=== PATIENT | female | born 1940 | race Caucasian/White ===

== ENCOUNTER 2017-04-01 05:45 | Inpatient (IN) | payer MEDICARE, OTHER ==
[~2017-04-01] VITALS: Ht 170.2 cm; Wt 77.2 kg
[~2017-04-01 05:45] MED LIST: ACET-1574 PO; ACET325T9 PO; ACET500T68 PO; ALBU2.5V14 NEB; ALPR0.5T PO; ATOR20TA PO; BUSP10TA PO; BUSP15TA PO; BUSP5TAB PO; CALC-98 PO; CHOL10003 PO; CHOL20002 PO; CHOL500016 PO; CYAN500T17 PO; CYCL-331 PO; CYCL5TAB PO; DIVA125C PO; DONE10TA7 PO; DONE5TAB56 PO; GABA-586 PO; GUAI-108 PO; GUAI-40 PO; HALO2TAB PO; HYDR-971 PO; LEVE500T6 PO; LISI10TA2 PO; LISI2.5T PO; LOPE2TAB27 PO; LORA-434 PO; MAG30ORA2 PO; MAG355OR12 PO; MAGN2400 PO; MAGN400O7 PO; MECL25TA3 PO; MEMA10TA PO; MEMA5TAB PO; MEMA7CAP PO; METH29OI TP; MIRT15TA PO; MIRT15TA3 PO; MULT-208 PO; NYST15PO9 TP; OLAN2.5T3 PO; OLAN5TAB5 PO; OMEP20TA8 PO; ONDA4TAB7 PO; QUET25TA5 PO; QUET50TA5 PO; RISP1TAB43 PO; SERT100T PO; SERT50TA PO; SORB1SOL PO; TRAM50TA PO; TRAZ-90 PO; TRAZ50TA15 PO; [UNRECOGNIZED DRUG - CODE] PO
[2017-04-01 06:12] LABS: BASO % 0 % (0-3); EOS % 0 % (0-3); HEMATOCRIT 39.5 % (36.0-47.0); HEMOGLOBIN 13.1 g/dL (12.0-15.5); LYMPH # 2.5 x10^3/uL (1.0-4.8); LYMPH % 22 % (24-48); MEAN CORPUSCULAR HEMOGLOBIN 33 pg (25-35); MEAN CORPUSCULAR HGB CONC 33 g/dL (31-37); MEAN CORPUSCULAR VOLUME 99 fL (79-100); MONO # 1.6 x10^3/uL (0.0-1.1); MONO % 14 % (0-9); NEUT # 7.2 x10^3uL (1.8-7.7); NEUT % 63 % (31-73); PLATELET COUNT 219 x10^3/uL (140-400); RED BLOOD COUNT 3.99 x10^6/uL (3.50-5.40); RED CELL DISTRIBUTION WIDTH 13.1 % (11.5-14.5); WHITE BLOOD COUNT 11.4 x10^3/uL (4.0-11.0)
[2017-04-01 06:20] LABS: BILIRUBIN,URINE NEG (NEG); CLARITY,URINE HAZY; COLOR,URINE YELLOW; GLUCOSE,URINE NEG (NEG); NITRITE,URINE POS (NEG); UROBILINOGEN,URINE 8 mg/dL (0.2 mg/dL)
[2017-04-01 06:21] LABS: BACTERIA,URINE MOD /HPF (0-FEW); RBC,URINE 0 /HPF (0-2); SQUAMOUS EPITHELIAL CELL,UR FEW /LPF
[2017-04-01] MEDS ORDERED: IV NORMAL SALINE 1,000ML 1,000 ML IV SCH (06:30)
[2017-04-01 06:33] LABS: ALBUMIN 2.3 g/dL (3.4-5.0); ALBUMIN/GLOBULIN RATIO 0.5 (1.0-1.7); CALCIUM 9.1 mg/dL (8.5-10.1); CREATININE 1.4 mg/dL (0.6-1.0); GFR 36.6; POTASSIUM 3.6 mmol/L (3.5-5.1); TOTAL BILIRUBIN 0.6 mg/dL (0.2-1.0); TOTAL PROTEIN 7.4 g/dL (6.4-8.2)
[2017-04-01] MEDS ORDERED: IPRATRPIUM/ALBUTEROL 0.5/2.5MG 3 ML NEBU. NEB ONE (07:00)
[2017-04-01 07:09] LABS: VAL ACID 43 mcg/mL (50-100)
[2017-04-01] MEDS ORDERED: methylPREDNISolone SOD SUCC PF 125 MG/2 ML VIAL. IV ONE (07:10)
--- NOTE | 2017-04-01 07:14 | RAD ---
Portable chest, 04/01/2017: History: Hypoxia, altered mental status Comparison is made to a study from 06/21/2015. The heart size and pulmonary vascularity are normal. There is tortuosity of the thoracic aorta. No pulmonary infiltrates are seen. There is no evidence of pleural fluid. IMPRESSION: 1. Aortic ectasia. 2. No acute cardiopulmonary abnormality is detected.
--- NOTE | 2017-04-01 07:20 | PHYS DOC ---
General Chief Complaint: FEVER Stated Complaint: FEVER Time Seen by MD: 06:19 Source: patient, other ([place] RN, home and school visitor) Exam Limitations: clinical condition Problems: History of Present Illness Initial Comments Patient is a 76-year-old female with baseline dementia currently on hospice for "decline" brought to the ED for fever and mental status change. I spoke with the patient's senior living nurse Deandra at 0635 verbally reported to me that the patient has a baseline of alert and oriented 1. This morning her nurse reports that the patient would not open her eyes, she was mumbling, and found to be febrile temperature 102.3 with a heart rate of 100 bpm oxygen saturation on room air 89% with a blood pressure of 145/60. Patient is not O2 dependent at the facility, her baseline oxygen saturation runs anywhere 96-97% on room air. The patient apparently received Tylenol at the facility her temperature did improve slightly to 101 and the patient was sent to the emergency department for evaluation. I did mention to the senior living nurse that it appeared her urine was contaminated with Pyridium, she states that the patient to her knowledge and according to her MAR the patient has not received this medication. At that point I did contact the patient's hospice nurse Maddie, with [facility] [phone] who did confirm to me that the patient is on hospice for PICC line but was full code and she advised me that she is full active medical treatment. On ED arrival the patient's oxygen saturation did improve to 97% on 2 L O2 via nasal cannula. The patient is a resident at [facility] [phone] , at times she requires a wheelchair for mobilization. Full Code, Full active treatment Timing/Duration: unsure (senior living nurse noticed this on her morning rounds. ) Severity: moderate Modifying Factors: improves with other Associated Symptoms: fever/chills, other Allergies: Coded Allergies: Penicillins (Verified Allergy, Intermediate, Rash, 11/10/15) urban flavor (Verified Allergy, Intermediate, Rash, 11/10/15) codeine (Verified Allergy, Intermediate, rash, 11/10/15) cyclobenzaprine (Verified Allergy, Intermediate, 11/10/15) fluconazole (Verified Allergy, Intermediate, 11/10/15) lorazepam (Verified Allergy, Intermediate, 11/10/15) TAKES ALRPAZOLAM prochlorperazine (Verified Allergy, Intermediate, 11/10/15) influenza virus vaccine, specific (Verified Adverse Reaction, Severe, Anaphylaxis, 03/18/16) Past Medical History Medical History: arthritis, cancer, dementia, hypertension, other (dementia with behavioral disturbance patient has prior [facility] admission, hyperlipidemia, vitamin B12 deficiency, vitamin D deficiency, major depressive disorder, generalized anxiety disorder, insomnia, Alzheimer's disease, legal blindness, hypertension, GERD, dyspepsia, constipation, chronic pain, elevated blood pressure without hypertension, seizures, chronic urinary tract infections) Surgical History: noncontributory, other Family History Significant Family History: no pertinent family hx Social History Smoker: other (unknown prior tobacco history) Alcohol: none Drugs: none Review of Systems All Other Systems: Reviewed and Negative (review of systems as per history of present illness, accurate review of systems unobtainable from the patient.) Physical Exam General Appearance: no apparent distress (unless interacted with by staff, yells out/anxious) Ear, Nose, Throat: hearing grossly normal, normal ENT inspection (dry membranes ), normal pharynx Neck: full range of motion, supple Respiratory: chest non-tender, other (mildly coarse BS b/l faint wheeze, fair to good air movement) Cardiovascular: normal peripheral pulses, tachycardia Gastrointestinal: normal bowel sounds, soft (suprapubic TTP no r/g/m) Back: no CVA tenderness, no vertebral tenderness Extremities: normal range of motion, non-tender, no calf tenderness, pelvis stable Neurologic/Psychiatric: alert (drowsy but alert), disoriented x 3, other (not cooperative, no lateralizing ND, UE tremors noted) Skin: normal color (plan is since Wednesday she was patient on 0 she's patient) , warm/dry Orders, Labs, Meds Pertinent labs: White blood cells 11.4, hemoglobin 13.1, platelets 219, sodium 161, potassium 3.6, BUNs 32, creatinine 1.4, lactic acid 1.4, Urinalysis: Squamous epithelial cells few, white blood cells 5-10, leukocyte esterase trace, nitrite positive, blood trace, ketones 15, specific gravity 1.025 A 1 L normal saline IV bolus was initiated prior to my arrival at 0600 shift change, I feel this is appropriate for the patient's hypovolemic hypernatremia. Further studies are pending. I also ordered a DuoNeb and Solu-Medrol 125 mg IV for patient's respiratory status. PATIENT: EVA BALL ACCOUNT: [id number] : 1940 LOCATION: ER AGE: 76 SEX: F EXAM STATUS: REG ER ORD. PHYSICIAN: SOTERO PARMAR DO REASON: hypoxia PROCEDURE: PORTABLE CHEST 1V Portable chest, 04/01/2017: History: Hypoxia, altered mental status Comparison is made to a study from 06/21/2015. The heart size and pulmonary vascularity are normal. There is tortuosity of the thoracic aorta. No pulmonary infiltrates are seen. There is no evidence of pleural fluid. IMPRESSION: 1. Aortic ectasia. 2. No acute cardiopulmonary abnormality is detected. DICTATED AND SIGNED BY: REGINA RUDOLPH MD DATE: 04/01/17710 CC: SARAH HARDING MD; SOTERO PARMAR DO ~ PATIENT: EVA BALL ACCOUNT: [id number] : 1940 LOCATION: ER AGE: 76 SEX: F EXAM STATUS: REG ER ORD. PHYSICIAN: SOTERO PARMAR DO REASON: AMS PROCEDURE: CT HEAD WO CONTRAST CT of the head without contrast, 04/01/2017: History: Altered mental status, fever, Alzheimer's Comparison is made to a study from 02/17/2014. There is moderate cerebral atrophy which has worsened. The ventricles have increased in size, most likely on a compensatory basis. There are now moderate patchy lucencies in the deep white matter bilaterally compatible with chronic ischemic change. Transependymal resorption of CSF is a less likely explanation for these lucencies. There is no evidence of acute intracranial hemorrhage or mass effect. IMPRESSION: 1. Worsening cerebral atrophy with increasing compensatory dilatation of the ventricles. 2. Moderate bilateral deep white matter lucencies have developed compatible with chronic ischemic change. PQRS Compliance Statement: One or more of the following individualized dose reduction techniques were utilized for this examination: 1. Automated exposure control 2. Adjustment of the mA and/or kV according to patient size 3. Use of iterative reconstruction technique DICTATED AND SIGNED BY: REGINA RUDOLPH MD DATE: 04/01/17 0732 CC: SARAH HARDING MD; SOTERO PARMAR DO ~ 0755: I discussed the patient with Dr. Martinez who accepts inpatient telemetry admission. IMPRESSIONS: Altered mental status Severe hypovolemic hypernatremia UTI Subtherapeutic valproic acid Elevated BNP consistent with age History of hospice status for "decline" Departure Time of Disposition: 08:13 Disposition: 09 ADMITTED INPATIENT Condition: STABLE Additional Instructions: Inpatient Telemetry admission for hydration/IV antibiotics/respiratory support SOTERO PARMAR DO Apr 01, 2017 07:20
--- NOTE | 2017-04-01 07:38 | RAD ---
CT of the head without contrast, 04/01/2017: History: Altered mental status, fever, Alzheimer's Comparison is made to a study from 02/17/2014. There is moderate cerebral atrophy which has worsened. The ventricles have increased in size, most likely on a compensatory basis. There are now moderate patchy lucencies in the deep white matter bilaterally compatible with chronic ischemic change. Transependymal resorption of CSF is a less likely explanation for these lucencies. There is no evidence of acute intracranial hemorrhage or mass effect. IMPRESSION: 1. Worsening cerebral atrophy with increasing compensatory dilatation of the ventricles. 2. Moderate bilateral deep white matter lucencies have developed compatible with chronic ischemic change. PQRS Compliance Statement: One or more of the following individualized dose reduction techniques were utilized for this examination: 1. Automated exposure control 2. Adjustment of the mA and/or kV according to patient size 3. Use of iterative reconstruction technique
[2017-04-01 07:43] LABS: INFLUENZA A PATIENT NEGATIVE (NEGATIVE); INFLUENZA B PATIENT NEGATIVE (NEGATIVE)
[2017-04-01] MEDS: IPRATRPIUM/ALBUTEROL 0.5/2.5MG 3 ML NEBU. NEB SCH ×4 (07:46→21:33)
[2017-04-01] MEDS ORDERED: IV DEXTROSE 5% - 0.9 % NACL 1,000 ML IV ONE (08:00)
[2017-04-01] MEDS ORDERED: ACETAMINOPHEN 325 MG TABLET PO PRN ×2 (08:00→15:00)
[2017-04-01] MEDS ORDERED: IBUPROFEN 100 MG/5 ML ORAL.SUSP. PO ONE (08:00)
[2017-04-01 09:21] VITALS: BP 113/62
[2017-04-01] MEDS ORDERED: METH113C6 TP (13:16)
[2017-04-01] MEDS ORDERED: SERT25TA PO (13:16)
[2017-04-01] MEDS ORDERED: FENT-73 TP (13:16)
[2017-04-01 14:41] VITALS: BP 105/61
[2017-04-01] MEDS: IV DEXTROSE 5% 1,000 ML IV SCH ×2 (14:58→21:28)
[2017-04-01] MEDS ORDERED: traMADol 50 MG TABLET PO PRN (15:00)
[2017-04-01] MEDS ORDERED: ALPRAZolam 0.5 MG TABLET PO PRN (15:00)
[2017-04-01] MEDS ORDERED: METHYL SALICYLATE/MENTHOL TOPICAL OINTMENT 29GM TUBE. TP PRN ×2 (15:00→15:30)
[2017-04-01] MEDS ORDERED: MAGNESIUM HYDROXIDE 2,400 MG/30 ML ORAL.SUSP. PO PRN (15:00)
[2017-04-01] MEDS ORDERED: NYSTATIN TOPICAL POWDER 15GM BOTTLE. TP PRN (15:00)
[2017-04-01] MEDS ORDERED: NON FORMULARY ITEM (Albuterol Sulfate (Albuterol Sulfate Conc Neb Soln) 1 VIAL) NEB PRN (15:00)
[2017-04-01] MEDS ORDERED: MAG HYDROX/AL HYDROX/SIMETH 30 ML ORAL.SUSP PO PRN (15:00)
[2017-04-01] MEDS ORDERED: ALBUTEROL SULFATE 2.5 MG/3 ML NEBU. NEB PRN (15:30)
[2017-04-01] MEDS: busPIRone 10 MG TABLET. PO SCH (17:11)
[2017-04-01 18:52] LABS: CALCIUM 8.8 mg/dL (8.5-10.1); CREATININE 1.4 mg/dL (0.6-1.0); GFR 36.6; POTASSIUM 3.3 mmol/L (3.5-5.1)
--- NOTE | 2017-04-01 18:52 | HP ---
ADMIT DATE: 04/01/2017 HISTORY OF PRESENT ILLNESS: The patient is a 76-year-old female patient, a resident at [facility], who apparently is on hospice. She has a baseline dementia and has a decline and was brought to the Emergency Room for fever and altered mental status. She normally is alert and oriented to herself. While at the alf, she was found to be febrile with temperature of 102.3 with a heart rate of 100 beats per minute. Her oxygen saturation was only 89%, her blood pressure was 145/60. She is not normally oxygen dependent at the facility and her baseline oxygen saturation normally is 96% to 97% on room air. She did receive Tylenol and her temperature came down to 101 by the time she arrived to the Emergency Department. She was extensively investigated in the Emergency Room and was found to have markedly hypernatremic with serum sodium of 161. She has also acute on chronic kidney injury and leukocytosis. Her valproic acid was subtherapeutic and her urinalysis was positive for nitrite and leukocyte esterase. There was 5-10 wbc's, moderate amount of bacteria. She was given a liter of normal saline and was admitted to continue with IV fluid, IV antibiotic. The patient is demented, does not really give any useful information. PAST MEDICAL HISTORY: Significant for dementia, major depressive disorder, gastroesophageal reflux disease, hypertension, anxiety, blindness, vitamin D deficiency and recurrent urinary tract infection. PAST SURGICAL HISTORY: Unremarkable. ALLERGIES: She is allergic to PENICILLIN, VIEYRA-FLAVORED CODEINE, FLEXERIL, DIFLUCAN, FLU VACCINE, ATIVAN, COMPAZINE. FAMILY HISTORY: Noncontributory. SOCIAL HISTORY: The patient resides at [facility]. She does not drink alcohol or use any recreational drugs. MEDICATIONS: She is currently on following medications: She is on Tylenol 650 mg every 6 hours as needed for pain or fever, albuterol sulfate by nebulizer every 4 hours, alprazolam 0.5 mg every 6 hours, ____, buspirone 10 mg twice a day, divalproex sodium 250 mg 3 times a day, levetiracetam 250 mg p.o. b.i.d., lisinopril 5 mg once a day, magnesium hydroxide for Mylanta 15 mL as needed every 6 hours, magnesium hydroxide for milk of magnesia 30 mL p.o. daily p.r.n. for constipation, analgesics ____ applied topically every 6 hours as needed for muscle pain. She is also on mirtazapine 7.5 mg at bedtime, nystatin powder applied topically twice a day as needed, sertraline 100 mg once a day, sertraline 25 mg daily. She is also on tramadol 100 mg every 6 hours. PHYSICAL EXAMINATION: GENERAL: On arrival to the Emergency Room; the patient was lethargic, but arousable, pale, but not jaundiced, cyanosis, or thyromegaly. No jugular venous distention. No limb edema. VITAL SIGNS: Her heart rate was 82, blood pressure was 155/68, temperature was 98.5, respiratory rate 22, and oxygen saturation was 98% on 2 liters of oxygen. HEAD, EYES, EARS, NOSE AND THROAT: Showed normocephalic, atraumatic. NECK: Supple. HEART: Showed normal first and second heart sounds with no gallop, rub, or murmur. CHEST: Clear to auscultation. No crepitation or rhonchi. ABDOMEN: Distended, soft, nontender. No guarding or rigidity. No organomegaly. All hernial orifices intact. Bowel sounds normal. NEUROLOGIC: She was lethargic, but arousable. She responds at times properly. All her cranial nerves are intact. She moves her upper extremities without difficulty. She is mostly bed bound. LABORATORY DATA: Her lab work showed a white cell count of 11,400; hemoglobin 13; hematocrit 39; MCV 99 and platelet count of 219,000 with normal manual differential. Her chemistry showed a serum sodium of 161, potassium 3.6, chloride 123, bicarbonate 29, anion gap of 9, BUN was 32, creatinine was 1.4. Estimated GFR was 37 mL per minute. Her glucose was 99. Her lactic acid was 1.4, calcium was 9.1. Total bilirubin, AST, ALT, alkaline phosphatase were normal. Her beta natriuretic peptide was 623. Total protein was 7.4, albumin 2.3. Her prothrombin time was 11.6, INR of 1.1, aPTT was 26. Her urinalysis showed the urine was yellow, hazy with a pH of 5.5, specific gravity of 1.025. There was trace of protein, negative for glucose, trace of ketones, trace of blood, positive for nitrite and leukocyte esterase. There was 0 rbc's, 5-10 wbc's, moderate amount of bacteria. Her toxicology screen showed her valproic acid ____. Her influenza A and B were negative. DIAGNOSTIC DATA: Her chest x-ray showed that the heart size and pulmonary vascularity are normal. There is tortuosity of the thoracic aorta, no pulmonary infiltrates are seen. There is no evidence of pleural fluid. Her CT scan of the head showed that the worsening cerebral atrophy with increasing compensatory dilatation of the ventricles, moderate bilateral deep white matter lucencies have developed compatibly with chronic ischemic changes. IMPRESSION: In summary, this is a 76-year-old female patient, a alf resident, who was admitted with: 1. Altered mental status. 2. Severe hypovolemic hypernatremia. 3. Urinary tract infection. 4. Subtherapeutic valproic acid, although the valproic acid is only for mood stabilizer, not for seizures and she was on hospice that has been revoked. PLAN: My plan is to obviously push fluid. Although, according to the nursing staff, she has difficulty drinking. We will switch her IV fluids to D5W at 100 mL per hour. I will hold her lisinopril and continue with all other medication as needed. We will monitor her labs closely and adjust her antibiotics according to the results of the culture and sensitivity. CAYLA PRESLEY MD DR: CIRILO/daniella JOB#: [id number] / [id number]
[2017-04-01 19:10] VITALS: BP 105/56
[2017-04-01 20:00] VITALS: BP 102/64
[2017-04-01] MEDS: DIVALPROEX 125 MG CAP.SPRINK PO SCH (20:15)
[2017-04-01] MEDS: levETIRAcetam 250 MG TABLET PO SCH (20:15)
[2017-04-01] MEDS: busPIRone 15 MG TABLET. PO SCH (20:16)
[2017-04-01] MEDS ORDERED: MIRTAZAPINE 7.5 MG TABLET. PO SCH (21:00)
[2017-04-01 22:21] VITALS: BP 100/55
[2017-04-02] VITALS (7 sets, daily range): BP systolic 100–113; BP diastolic 50–63
[2017-04-02] MEDS: IV DEXTROSE 5% 1,000 ML IV SCH (04:07)
[2017-04-02] MEDS: IPRATRPIUM/ALBUTEROL 0.5/2.5MG 3 ML NEBU. NEB SCH (05:25)
[2017-04-02 06:11] LABS: BASO % 0 % (0-3); EOS % 0 % (0-3); HEMATOCRIT 32.8 % (36.0-47.0); LYMPH # 2.7 x10^3/uL (1.0-4.8); LYMPH % 25 % (24-48); MEAN CORPUSCULAR HEMOGLOBIN 33 pg (25-35); MEAN CORPUSCULAR HGB CONC 34 g/dL (31-37); MEAN CORPUSCULAR VOLUME 99 fL (79-100); MONO % 9 % (0-9); NEUT # 7.3 x10^3uL (1.8-7.7); NEUT % 66 % (31-73); PLATELET COUNT 173 x10^3/uL (140-400); RED BLOOD COUNT 3.31 x10^6/uL (3.50-5.40); RED CELL DISTRIBUTION WIDTH 13.1 % (11.5-14.5); WHITE BLOOD COUNT 11.1 x10^3/uL (4.0-11.0)
[2017-04-02 06:22] LABS: ALBUMIN 1.9 g/dL (3.4-5.0); ALBUMIN/GLOBULIN RATIO 0.4 (1.0-1.7); CALCIUM 8.3 mg/dL (8.5-10.1); CREATININE 1.1 mg/dL (0.6-1.0); GFR 48.3; POTASSIUM 3.2 mmol/L (3.5-5.1); TOTAL BILIRUBIN 0.3 mg/dL (0.2-1.0); TOTAL PROTEIN 6.2 g/dL (6.4-8.2)
[2017-04-02] MEDS: POTASSIUM CHLORIDE 20 MEQ TABLET.ER. PO ONE ×2 (06:38→07:00)
[2017-04-02] MEDS ORDERED: SERTRALINE 25 MG TABLET. PO SCH (09:00)
[2017-04-02] MEDS: levETIRAcetam 250 MG TABLET PO SCH (09:00)
[2017-04-02] MEDS: DIVALPROEX 125 MG CAP.SPRINK PO SCH ×2 (09:00→13:32)
[2017-04-02] MEDS ORDERED: SERTRALINE 100 MG TABLET. PO SCH (09:00)
[2017-04-02] MEDS: busPIRone 15 MG TABLET. PO SCH (09:00)
[2017-04-02] MEDS ORDERED: VANCOMYCIN 1.75 GM in IV NORMAL SALINE 500ML 500 ML IV ONE (11:00)
[2017-04-02] MEDS: VANCOMYCIN PER PHARMACY MC PRN (11:27)
[2017-04-02] MEDS: POTASSIUM CHLORIDE 40 MEQ in IV DEXTROSE 5% 1,000 ML IV SCH ×2 (11:32→23:37)
[2017-04-02] MEDS: busPIRone 10 MG TABLET. PO SCH (13:00)
[2017-04-02] MEDS ORDERED: ACETAMINOPHEN 325 MG SUPP.RECT PR PRN (14:00)
[2017-04-03 02:00] VITALS: BP 110/63
--- NOTE | 2017-04-03 02:25 | PN ---
DATE: 04/02/2017 SUBJECTIVE: The patient is resting, propped up in her bed, in no apparent respiratory distress. She is awake, alert, continues to be confused, combative, refusing to eat and drink. She ate her breakfast apparently this morning, but refused all her medication, refused her lunch. OBJECTIVE: GENERAL: On examining her, she was slightly pale, but no jaundice or cyanosis. No lymphadenopathy, no thyromegaly, no jugular venous distention, no limb edema. VITAL SIGNS: Her heart rate was 58, blood pressure was 101/53, temperature was 98.3, respiratory rate was 15, and oxygen saturation was 92% on 2 liters of oxygen by nasal cannula. HEAD, EYES, EARS, NOSE, AND THROAT: Showed normocephalic, atraumatic. NECK: Supple. HEART: Showed normal first and second heart sounds with no gallop, rub, or murmur. CHEST: Clear to auscultation. No crepitation or rhonchi. ABDOMEN: Distended, soft, nontender. No guarding or rigidity. No organomegaly. All hernial orifices intact. Bowel sounds normal. NEUROLOGIC: She is demented without any obvious lateralizing sign. Her intake over the last 24 hours was 3100, output was 575 with a Schultz catheter. LABORATORY DATA: Her lab work this morning showed white cell count of 11,100, hemoglobin 11, hematocrit 33, MCV 99, and platelet count 173,000 with normal manual differential. Her chemistry showed a serum sodium 157, potassium 3.2, chloride 116, bicarbonate 30, anion gap of 8, BUN 25, creatinine 1.1. Estimated GFR was 48 mL per minute. Her glucose 145, calcium was 8.3. Total bilirubin, AST, ALT, alkaline phosphatase were normal. Total protein was 6.2. INR 1.9. Her blood culture has grown gram-positive cocci in clusters ____. ASSESSMENT: 1. Altered mental status due to severe hypernatremia, resolving. 2. Severe hypovolemic hypernatremia. Serum sodium is trending down. 3. Urinary tract infection, dementia, hypertension. In fact, the patient is hypotensive, anxiety, vitamin D deficiency, and blindness. We will switch her IV fluid to D5W 1000 mL plus 40 mEq of potassium chloride. We added vancomycin given that she is grown Gram-positive cocci in her blood and we will repeat all her lab work tomorrow and change her antibiotics or adjust her according to the identification and sensitivity of the culture. CAYLA PRESLEY MD DR: CIRILO/daniella JOB#: [id number] / [id number]
[2017-04-03 05:23] LABS: HEMATOCRIT 35.4 % (36.0-47.0); HEMOGLOBIN 11.9 g/dL (12.0-15.5); RED BLOOD COUNT 3.61 x10^6/uL (3.50-5.40); RED CELL DISTRIBUTION WIDTH 12.9 % (11.5-14.5)
[2017-04-03 05:35] LABS: ALBUMIN 1.9 g/dL (3.4-5.0); ALBUMIN/GLOBULIN RATIO 0.5 (1.0-1.7); CALCIUM 8.3 mg/dL (8.5-10.1); CREATININE 0.9 mg/dL (0.6-1.0); GFR 60.9; POTASSIUM 3.8 mmol/L (3.5-5.1); TOTAL BILIRUBIN 0.3 mg/dL (0.2-1.0); TOTAL PROTEIN 5.9 g/dL (6.4-8.2)
[2017-04-03 06:00] VITALS: BP 110/62
[2017-04-03] MEDS: VANCOMYCIN PER PHARMACY MC PRN (08:23)
[2017-04-03] MEDS ORDERED: fentaNYL 12MCG/HR 1 PATCH PATCH TD SCH (09:00)
[2017-04-03 11:00] VITALS: BP 107/64
[2017-04-03] MEDS ORDERED: VANCOMYCIN 1 GM in IV NORMAL SALINE 250ML 250 ML IV SCH (11:00)
[2017-04-03] MEDS: HALOPERIDOL LACT 5 MG/ML VIAL. IVP PRN ×2 (11:19→16:19)
[2017-04-03 15:10] VITALS: BP 104/68
[2017-04-03] MEDS: POTASSIUM CHLORIDE 40 MEQ in IV DEXTROSE 5% 1,000 ML IV SCH (15:38)
[2017-04-03 19:00] VITALS: BP 103/65
[2017-04-03 22:00] VITALS: BP 101/60
--- NOTE | 2017-04-03 22:35 | PN ---
DATE: 04/03/2017 SUBJECTIVE: The patient is resting slightly propped up in bed, no apparent respiratory distress. She is sleepy, but arousable. She is very uncooperative, refusing to eat, refusing medications, refusing to keep her oxygen, refusing care; however, she has been afebrile and hemodynamically stable. Her blood culture has grown coagulase negative Staph, for which she is on vancomycin and her urine has grown more than 100,000 colony forming units per mL of gram-negative rods. The identification and sensitivity is still pending at the time of this dictation. OBJECTIVE: GENERAL: On examining her, she was pale, not jaundiced, cyanosis, or thyromegaly. No jugular venous distention. No limb edema. VITAL SIGNS: Her heart rate was 69, blood pressure was 107/64, temperature was 97, respiratory rate 22, and oxygen saturation was 98% on 2 liters of oxygen. HEAD, EYES, EARS, NOSE AND THROAT: Showed normocephalic, atraumatic. NECK: Supple. HEART: Showed normal first and second heart sounds with no gallop, rub or murmur. CHEST: Clear to auscultation. No crepitation or rhonchi. ABDOMEN: Distended, soft, nontender. NEUROLOGIC: She is demented without any obvious lateralizing sign. All her cranial nerves are intact. She moves extremities without difficulty, though she is mostly bed bound and chair bound. Her intake was 2550, output was 675. LABORATORY DATA: Her white cell count was 9,000, hemoglobin 12, hematocrit 35, MCV 98 and platelet count of 179,000. Her chemistry showed a serum sodium 146, potassium 3.8, chloride 110, bicarbonate 32, anion gap of 4, BUN 16, creatinine 0.9, estimated GFR was 61 mL per minute. Her glucose was 97. Calcium was 8.3, magnesium 1.8. Total bilirubin, AST, ALT, alkaline phosphatase are normal. Total protein was 5.9, albumin was 1.9. As I stated, her urine culture showed growth of more than 100,000 colony forming units per mL of gram-negative rods. The identification and sensitivity is still pending. Her blood culture has grown coagulase negative staph species. ASSESSMENT: 1. Altered mental status. 2. Severe hypovolemic hypernatremia. Serum sodium is trending down, as of this morning it was 146 mEq per liter. 3. Urinary tract infection growing more than 100,000 colony forming units per mL of gram-negative rods. The identification and sensitivity still pending 4. Dementia. 5. Hypertension. 6. Coagulase-negative Staph bacteremia. PLAN: To continue with IV fluid, continue with vancomycin as well as Levaquin and await the culture and sensitivity to adjust antibiotics accordingly. CAYLA PRESLEY MD DR: CIRILO/daniella JOB#: [id number] / [id number]
[2017-04-04 02:07] VITALS: BP 105/64
[2017-04-04] MEDS: POTASSIUM CHLORIDE 40 MEQ in IV DEXTROSE 5% 1,000 ML IV SCH ×2 (04:25→18:20)
[2017-04-04 05:22] LABS: BASO % 0 % (0-3); EOS # 0.1 x10^3/uL (0.0-0.7); EOS % 2 % (0-3); HEMATOCRIT 36.1 % (36.0-47.0); HEMOGLOBIN 12.3 g/dL (12.0-15.5); LYMPH # 3.2 x10^3/uL (1.0-4.8); LYMPH % 36 % (24-48); MEAN CORPUSCULAR HEMOGLOBIN 33 pg (25-35); MEAN CORPUSCULAR HGB CONC 34 g/dL (31-37); MEAN CORPUSCULAR VOLUME 96 fL (79-100); MONO # 0.9 x10^3/uL (0.0-1.1); MONO % 10 % (0-9); NEUT # 4.8 x10^3uL (1.8-7.7); NEUT % 53 % (31-73); PLATELET COUNT 201 x10^3/uL (140-400); RED BLOOD COUNT 3.76 x10^6/uL (3.50-5.40); RED CELL DISTRIBUTION WIDTH 12.5 % (11.5-14.5); WHITE BLOOD COUNT 9.1 x10^3/uL (4.0-11.0)
[2017-04-04 05:54] LABS: ALBUMIN 2.1 g/dL (3.4-5.0); ALBUMIN/GLOBULIN RATIO 0.5 (1.0-1.7); CALCIUM 8.5 mg/dL (8.5-10.1); GFR 53.9; POTASSIUM 4.1 mmol/L (3.5-5.1); TOTAL BILIRUBIN 0.5 mg/dL (0.2-1.0); TOTAL PROTEIN 6.3 g/dL (6.4-8.2)
[2017-04-04 06:20] VITALS: BP 101/68
[2017-04-04] MEDS: HALOPERIDOL LACT 5 MG/ML VIAL. IVP PRN ×2 (09:59→20:06)
[2017-04-04 11:00] VITALS: BP 108/67
[2017-04-04] MEDS ORDERED: ERTAPENEM 1 GM in IV NORMAL SALINE 50ML 50 ML IV SCH (11:00)
--- NOTE | 2017-04-04 11:43 | PN ---
DATE: 04/04/2017 SUBJECTIVE: The patient is resting, slightly propped up in bed, in no apparent respiratory distress. She is awake, alert, very combative, yelling, screaming, refusing care. Her serum sodium had normalized and is down to 136 mEq per liter. Her urine culture has grown more than 100,000 colony forming units per mL of gram-negative rods identified as Escherichia coli sensitive to cefuroxime as well as ertapenem. Her blood cultures grew Staphylococcus capitis, recovered from 1 anaerobic bottle only and it is sensitive to cefuroxime as well as imipenem, meropenem. My plan is to treat her with 1 g IV ertapenem today and tomorrow and she can be discharged back on cefuroxime to treat both bacteria thereafter. OBJECTIVE: GENERAL: On examining her, she looked well and was clearly in no apparent respiratory distress, pale. No jaundice, cyanosis, or thyromegaly. No jugular venous distension. No lower limb edema. VITAL SIGNS: Her heart rate was 86, blood pressure was 101/68, temperature was 99.2, respiratory rate 20, and oxygen saturation was 99% on 2%. HEAD, EYES, EARS, NOSE AND THROAT: Showed normocephalic, atraumatic. NECK: Supple. HEART: Showed normal first and second heart sounds with no gallop, rub or murmur. CHEST: Clear to auscultation. No crepitation or rhonchi. ABDOMEN: Distended, soft, nontender. NEUROLOGIC: She is demented without any lateralizing sign. All cranial nerves are intact. She moves all extremities without difficulty, although she is mostly bedbound and chair-bound. Her intake was 2163, output was 2300. LABORATORY DATA: As of this morning, her serum sodium was 136, potassium 4.1, chloride 105, bicarbonate 29, anion gap of 2, BUN 9, creatinine 1, estimated GFR was 54 mL/minute. Her glucose was 113, calcium was 8.5. Total bilirubin, AST, ALT, and alkaline phosphatase are normal. Her total protein was 6.3, albumin 2.1. Her white cell count was 9100, hemoglobin 12.3, hematocrit 36, MCV 96, and platelet count 201,000 with normal manual differential. As I stated, her urine culture showed growth of more than 100,000 colony forming units/mL of Escherichia coli, sensitive to cefuroxime as well as imipenem and ertapenem. Her blood culture showed growth of Staphylococcus capitis that is recovered from anaerobic bottle only and based on resistant to penicillin, susceptibility to oxacillin. It is actually susceptible to cefuroxime as well as imipenem and meropenem. ASSESSMENT: 1. Altered mental status due to metabolic encephalopathy, resolved. 2. Severe hypovolemic hypernatremia, resolved. Her serum sodium is now normalized to 136. 3. Urinary tract infection, growing more than 100,000 colony forming units/mL of gram-negative rods identified as Escherichia coli. 4. Bacteremia with growth of Staphylococcus capitis, sensitive to cefuroxime as well as ertapenem. 5. Dementia. 6. Hypertension. PLAN: To continue with IV fluid. I have discontinued vancomycin and Levaquin, switched her to IV ertapenem to take 1 g today and tomorrow and it should be switched to cefuroxime, to be taken thereafter to treat both bacteria as an outpatient. CAYLA PRESLEY MD DR: CIRILO/daniella JOB#: [id number] / [id number]
[2017-04-04 15:00] VITALS: BP 87/58
[2017-04-04 19:04] VITALS: BP 98/69
[2017-04-04 22:24] VITALS: BP 104/62
[2017-04-05 05:27] VITALS: BP 112/65
[2017-04-05 06:01] LABS: HEMATOCRIT 35.2 % (36.0-47.0); RED BLOOD COUNT 3.68 x10^6/uL (3.50-5.40); RED CELL DISTRIBUTION WIDTH 12.5 % (11.5-14.5); WHITE BLOOD COUNT 8.6 x10^3/uL (4.0-11.0)
[2017-04-05 06:08] LABS: CALCIUM 8.8 mg/dL (8.5-10.1); GFR 53.9
[2017-04-05] MEDS: POTASSIUM CHLORIDE 40 MEQ in IV DEXTROSE 5% 1,000 ML IV SCH (08:30)
[2017-04-05 08:35] VITALS: BP 116/64
--- NOTE | 2017-04-05 13:17 | PDOC3 ---
Discharge Summary Visit Information Date of Admission: Apr 01, 2017 Date of Discharge: Apr 05, 2017 Final Diagnosis Problems Medical Problems: (1) Hypovolemia dehydration Status: Acute ltered mental status due to metabolic encephalopathy, resolved. 2. Severe hypovolemic hypernatremia, resolved. Her serum sodium is now normalized to 136. 3. Urinary tract infection, growing more than 100,000 colony forming units/mL of gram-negative rods identified as Escherichia coli. 4. Bacteremia with growth of Staphylococcus capitis, sensitive to cefuroxime as well as ertapenem. 5. Dementia. 6. Hypertension. Problems: Brief Hospital Course Allergies Allergies Coded Allergies Type Severity Reaction Last Updated Verified Penicillins Allergy Intermediate Rash 11/10/15 Yes urban flavor Allergy Intermediate Rash 11/10/15 Yes codeine Allergy Intermediate rash 11/10/15 Yes cyclobenzaprine Allergy Intermediate 11/10/15 Yes fluconazole Allergy Intermediate 11/10/15 Yes lorazepam Allergy Intermediate 11/10/15 Yes prochlorperazine Allergy Intermediate 11/10/15 Yes influenza virus vaccine, specific Adverse Reaction Severe Anaphylaxis 03/18/16 Yes Vital Signs Vital Signs Date Time Temp Pulse Resp B/P (MAP) Pulse Ox O2 Delivery O2 Flow Rate FiO2 04/05/17 08:35 98.8 81 23 116/64 (81) 95 Nasal Cannula 2.0 Lab Results Laboratory Tests Test 04/04/17 04:55 04/05/17 05:34 White Blood Count 9.1 x10^3/uL (4.0-11.0) 8.6 x10^3/uL (4.0-11.0) Red Blood Count 3.76 x10^6/uL (3.50-5.40) 3.68 x10^6/uL (3.50-5.40) Hemoglobin 12.3 g/dL (12.0-15.5) 12.0 g/dL (12.0-15.5) Hematocrit 36.1 % (36.0-47.0) 35.2 % (36.0-47.0) Mean Corpuscular Volume 96 fL (79-100) 96 fL (79-100) Mean Corpuscular Hemoglobin 33 pg (25-35) 33 pg (25-35) Mean Corpuscular Hemoglobin Concent 34 g/dL (31-37) 34 g/dL (31-37) Red Cell Distribution Width 12.5 % (11.5-14.5) 12.5 % (11.5-14.5) Platelet Count 201 x10^3/uL (140-400) 215 x10^3/uL (140-400) Neutrophils (%) (Auto) 53 % (31-73) Lymphocytes (%) (Auto) 36 % (24-48) Monocytes (%) (Auto) 10 % (0-9) Eosinophils (%) (Auto) 2 % (0-3) Basophils (%) (Auto) 0 % (0-3) Neutrophils # (Auto) 4.8 x10^3uL (1.8-7.7) Lymphocytes # (Auto) 3.2 x10^3/uL (1.0-4.8) Monocytes # (Auto) 0.9 x10^3/uL (0.0-1.1) Eosinophils # (Auto) 0.1 x10^3/uL (0.0-0.7) Basophils # (Auto) 0.0 x10^3/uL (0.0-0.2) Sodium Level 136 mmol/L (136-145) 137 mmol/L (136-145) Potassium Level 4.1 mmol/L (3.5-5.1) 4.0 mmol/L (3.5-5.1) Chloride Level 105 mmol/L (98-107) 105 mmol/L (98-107) Carbon Dioxide Level 29 mmol/L (21-32) 27 mmol/L (21-32) Anion Gap 2 (6-14) 5 (6-14) Blood Urea Nitrogen 9 mg/dL (7-20) 8 mg/dL (7-20) Creatinine 1.0 mg/dL (0.6-1.0) 1.0 mg/dL (0.6-1.0) Estimated GFR (Cockcroft-Gault) 53.9 53.9 BUN/Creatinine Ratio 9 (6-20) Glucose Level 113 mg/dL (70-99) 111 mg/dL (70-99) Calcium Level 8.5 mg/dL (8.5-10.1) 8.8 mg/dL (8.5-10.1) Total Bilirubin 0.5 mg/dL (0.2-1.0) Aspartate Amino Transf (AST/SGOT) 20 U/L (15-37) Alanine Aminotransferase (ALT/SGPT) 15 U/L (14-59) Alkaline Phosphatase 90 U/L (46-116) Total Protein 6.3 g/dL (6.4-8.2) Albumin 2.1 g/dL (3.4-5.0) Albumin/Globulin Ratio 0.5 (1.0-1.7) Brief Hospital Course The patient is a 76-year-old female patient, a resident at [facility], who apparently is on hospice. She has a baseline dementia and has a decline and was brought to the Emergency Room for fever and altered mental status. She normally is alert and oriented to herself. While at the long-term, she was found to be febrile with temperature of 102.3 with a heart rate of 100 beats per minute. Her oxygen saturation was only 89%, her blood pressure was 145/60. She is not normally oxygen dependent at the facility and her baseline oxygen saturation normally is 96% to 97% on room air. She did receive Tylenol and her temperature came down to 101 by the time she arrived to the Emergency Department. She was extensively investigated in the Emergency Room and was found to have markedly hypernatremic with serum sodium of 161. She has also acute on chronic kidney injury and leukocytosis. Her valproic acid was subtherapeutic and her urinalysis was positive for nitrite and leukocyte esterase. SHE HAD AN E COLI UTI AND STAPH CAPITUS BACTEREMIA. SHE RECEIVED IV FLUIDS WHICH CORRECTED HER HYPERNATREMIA. SHE REMAINED VERY CONFUSED AND COMBATIVE AND WAS SENT BACK [facility]. SHE HAS HAD A MARKED DECLINE IN HER OVERALL CONDITION DUE TO HER PROGRESSION OF HER DEMENTIA. Discharge Information Condition at Discharge: Improved Disposition/Orders: D/C to Home w/ Hospice Dischare Medications Current Medications Sodium Chloride 1,000 ml @ 1,000 mls/hr Q1H IV Last administered on 06:24; Start 04/01/17 at 06:30; Stop 04/01/17 at 07:29; Status DC Albuterol/ Ipratropium (Duoneb) 3 ml 1X ONCE NEB Last administered on 07:05; Start 04/01/17 at 07:00; Stop 04/01/17 at 07:02; Status DC Methylprednisolone Sodium Succinate (SOLU-Medrol 125MG VIAL) 125 mg 1X ONCE IV Last administered on 04/01/17 07:10; Start 04/01/17 at 07:10; Stop at 07:11; Status DC Levofloxacin/ Dextrose (Levaquin Per Pharmacy) 1 each PRN DAILY PRN MC SEE COMMENTS; Start 04/01/17 at 07:15; Stop 04/01/17 at 08:11; Status DC Levofloxacin/ Dextrose 100 ml @ 100 mls/hr 1X ONCE IV ; Start 04/01/17 at 07: 30; Stop 04/01/17 at 07:30; Status DC Levofloxacin/ Dextrose 50 ml @ 50 mls/hr Q24H IV Last administered on 08:08; Start 04/01/17 at 07:30; Stop 04/04/17 at 10:25; Status DC Ibuprofen (Motrin) 600 mg 1X ONCE PO Last administered on 04/01/17 07:56; Start 04/01/17 at 08:00; Stop 04/01/17 at 08:01; Status DC Acetaminophen (Tylenol) 650 mg PRN Q4HRS PRN PO FEVER; Start 04/01/17 at 08:00 ; Stop 04/01/17 at 15:13; Status DC Albuterol/ Ipratropium (Duoneb) 3 ml RTQID NEB Last administered on 04/02/17 05:25; Start 04/01/17 at 08:00; Stop 04/02/17 at 08:00; Status DC Levofloxacin/ Dextrose (Levaquin Per Pharmacy) 1 each PRN DAILY PRN MC SEE COMMENTS Last administered on 04/03/17 08:21; Start 04/01/17 at 08:00; Stop 04/04/17 at 11:01; Status DC Dextrose/Sodium Chloride 1,000 ml @ 150 mls/hr 1X ONCE IV Last administered on 04/01/17 09:35; Start 04/01/17 at 08:00; Stop 04/01/17 at 14:52; Status DC Dextrose 1,000 ml @ 150 mls/hr Q6H40M IV Last administered on 04/02/17 04:07 ; Start 04/01/17 at 15:00; Stop 04/02/17 at 10:26; Status DC Acetaminophen (Tylenol) 650 mg PRN Q6HRS PRN PO PAIN / TEMP Last administered on 04/01/17 17:11; Start 04/01/17 at 15:00; Stop 04/02/17 at 14:48; Status DC Alprazolam (Xanax) 0.5 mg PRN Q6HRS PRN PO ANXIETY / AGITATION; Start at 15:00; Stop 04/02/17 at 14:48; Status DC Buspirone HCl (Buspar) 10 mg BID@1300,1700 PO Last administered on 04/01/17 17:11; Start 04/01/17 at 17:00; Stop 04/02/17 at 14:48; Status DC Buspirone HCl (Buspar) 15 mg BID PO Last administered on 04/01/17 20:16; Start 04/01/17 at 21:00; Stop 04/02/17 at 14:48; Status DC Divalproex Sodium (Depakote Sprinkles) 250 mg TID PO Last administered on 04/01 20:15; Start 04/01/17 at 21:00; Stop 04/02/17 at 14:48; Status DC Fentanyl (Duragesic 12mcg/ Hr) 1 patch Q3DAYS TD Last administered on 09:35; Start 04/03/17 at 09:00; Stop 04/05/17 at 10:22; Status DC Levetiracetam (Keppra) 250 mg BID PO Last administered on 04/01/17 20:15; Start 04/01/17 at 21:00; Stop 04/02/17 at 10:26; Status DC Al Hydroxide/Mg Hydroxide (Mylanta Plus Xs) 15 ml PRN Q6HRS PRN PO DYSPEPSIA; Start 04/01/17 at 15:00; Stop 04/02/17 at 14:48; Status DC Magnesium Hydroxide (Milk Of Magnesia) 2,400 mg PRN QHS PRN PO CONSTIPATION; Start 04/01/17 at 15:00; Stop 04/02/17 at 14:48; Status DC Multi-Ingredient Ointment (Analgesic Mcdonald) 1 marialuisa PRN Q6HRS PRN TP MUSCLE PAIN; Start 04/01/17 at 15:00; Stop 04/05/17 at 10:22; Status DC Mirtazapine (Remeron) 7.5 mg QHS PO Last administered on 04/01/17t 20:16; Start 04/01/17 at 21:00; Stop 04/02/17 at 14:48; Status DC Nystatin (Nystop) 1 marialuisa PRN DAILY PRN TP SKIN BREAKDOWN; Start 04/01/17 at 15: 00; Stop 04/05/17 at 10:22; Status DC Sertraline HCl (Zoloft) 25 mg DAILY PO ; Start 04/02/17 at 09:00; Stop at 14:48; Status DC Sertraline HCl (Zoloft) 100 mg DAILY PO ; Start 04/02/17 at 09:00; Stop at 14:48; Status DC Tramadol HCl (Ultram) 100 mg PRN Q6HRS PRN PO PAIN; Start 04/01/17 at 15:00; Stop 04/02/17 at 14:48; Status DC Non-Formulary Medication 1 vial PRN Q4HRS PRN NEB SHORTNESS OF BREATH; Start 04/01/17 at 15:00; Stop 04/01/17 at 15:30; Status DC Multi-Ingredient Ointment (Analgesic Mcdonald) 1 marialuisa PRN Q6HRS PRN TP PAIN; Start 04/01/17 at 15:30; Status Cancel Albuterol Sulfate (Ventolin) 2.5 mg PRN Q4HRS PRN NEB SHORTNESS OF BREATH Last administered on 04/03/17 15:33; Start 04/01/17 at 15:30; Stop 04/05/17 at 10 :22; Status DC Potassium Chloride (Klor-Con) 40 meq 1X ONCE PO ; Start 04/02/17 at 07:00; Stop 04/02/17 at 07:01; Status DC Vancomycin HCl (Vanco Per Pharmacy) 1 each PRN DAILY PRN MC SEE COMMENTS Last administered on 04/03/17 08:23; Start 04/02/17 at 10:30; Stop 04/04/17 at 11 :01; Status DC Potassium Chloride 40 meq/ Dextrose 1,020 ml @ 75 mls/hr [id number] IV Last administered on 04/05/17 08:30; Start 04/02/17 at 11:00; Stop 04/05/17 at 10 :22; Status DC Levetiracetam 250 mg/Sodium Chloride 102.5 ml @ 400 mls/hr Q12HR IV ; Start at 11:00; Status Cancel Vancomycin HCl 1.75 gm/Sodium Chloride 500 ml @ 250 mls/hr 1X ONCE IV Last administered on 04/02/17 12:08; Start 04/02/17 at 11:00; Stop 04/02/17 at 12 :59; Status DC Vancomycin HCl 1 gm/Sodium Chloride 250 ml @ 250 mls/hr Q24H IV Last administered on 04/03/17 11:23; Start 04/03/17 at 11:00; Stop 04/04/17 at 10 :26; Status DC Vancomycin HCl 1 each 1X ONCE MC ; Start 04/04/17 at 10:30; Stop 04/04/17 at 10:31; Status DC Levetiracetam 250 mg/Sodium Chloride 102.5 ml @ 400 mls/hr Q12HR IV Last administered on 04/05/17 08:27; Start 04/02/17 at 11:00; Stop 04/05/17 at 10 :22; Status DC Acetaminophen (Tylenol) 650 mg PRN Q4HRS PRN AK FEVER > 100.5'F Last administered on 04/04/17 05:06; Start 04/02/17 at 14:00; Stop 04/05/17 at 10 :22; Status DC Haloperidol Lactate (Haldol) 2 mg PRN Q4HRS PRN IVP AGITATION Last administered on 04/04/17 20:06; Start 04/02/17 at 14:00; Stop 04/05/17 at 10 :22; Status DC Ceftriaxone Sodium 1 gm/ Sodium Chloride 50 ml @ 100 mls/hr Q24H IV ; Start at 10:30; Stop 04/04/17 at 10:30; Status DC Ertapenem 1 gm/ Sodium Chloride 50 ml @ 100 mls/hr Q24H IV Last administered on 04/04/17 11:13; Start 04/04/17 at 11:00; Stop 04/05/17 at 10:22; Status DC Active Scripts Active Reported Muscle Rub Cream (Methyl Salicylate/Menthol) 113 Gm Cream..g. 113 Gm TP PRN Q6HRS PRN FENTANYL 12mcg/hr (Fentanyl) 1 Each Patch.td72 1 Patch TP Q3DAYS Zoloft (Sertraline Hcl) 25 Mg Tablet 1 Tab PO DAILY Buspirone Hcl 10 Mg Tablet 10 Mg PO BID@1300,1700 Buspirone Hcl 15 Mg Tablet 15 Mg PO BID Tramadol Hcl (Tramadol HCl) 50 Mg Tablet 100 Mg PO PRN Q6HRS PRN Depakote Sprinkle (Divalproex Sodium) 125 Mg Cap.sprink 250 Mg PO TID Give with food. DO NOT CRUSH OR CHEW PELLETS Analgesic Mcdonald (Methyl Salicylate/Menthol) 29 Gm Oint...g. 1 Marialuisa TP PRN Q6HRS PRN Albuterol Sulfate Conc Neb Soln (Albuterol Sulfate) 2.5 Mg/0.5 Ml Vial.neb 1 Vial NEB PRN Q4HRS PRN Xanax (Alprazolam) 0.5 Mg Tablet 0.5 Mg PO PRN Q6HRS PRN Levetiracetam 500 Mg Tablet 250 Mg PO BID Lisinopril 2.5 Mg Tablet 5 Mg PO DAILY Hold for SBP less than 100. After a held dose, reassess in 2 hours. If SBP is above threshold administer dose as ordered. If SBP is below threshold, contact provider for additional instructions. Remeron (Mirtazapine) 15 Mg Tablet 7.5 Mg PO QHS Milk Of Magnesia (Magnesium Hydroxide) 400 Mg/5 Ml Oral.susp 30 Ml PO PRN QHS PRN Mag-Al Plus Xs Suspension (Mag Hydrox/Al Hydrox/Simeth) 30 Ml Oral.susp 15 Ml PO PRN Q6HRS PRN Tylenol (Acetaminophen) 325 Mg Tablet 650 Mg PO PRN Q6HRS PRN Max Acetaminophen Dose is 4000mg in 24 hours from all sources for Adults Zoloft (Sertraline Hcl) 100 Mg Tablet 100 Mg PO DAILY Nystatin 15 Gm Powder 1 Marialuisa TP PRN DAILY PRN Patient Instructions Patient Instuctions DISCHARGED BACK TO THE [facility]URSING [facility]AC[facility] HOSP[facility]. ZEKE JOHNSON DO Apr 05, 2017 13:17
== END 2017-04-05 10:18 | disposition home or self-care (01) | DRG 871 ==
LOC: ER 05:45 → 1 SOUTH 07:59 → ICU 18:45
PROVIDERS: ADMIT Internal Medicine; ATTEND Internal Medicine
DX: A41.1 Sepsis due to other specified staphylococcus (principal); G93.41 Metabolic encephalopathy; N17.9 Acute kidney failure, unspecified; E86.0 Dehydration; E87.0 Hyperosmolality and hypernatremia; I95.9 Hypotension, unspecified; F02.81 Dementia in other diseases classified elsewhere, unspecified severity, with behavioral disturbance; G30.9 Alzheimer's disease, unspecified; E86.1 Hypovolemia; N39.0 Urinary tract infection, site not specified; B96.20 Unspecified Escherichia coli [E. coli] as the cause of diseases classified elsewhere; E55.9 Vitamin D deficiency, unspecified; E78.5 Hyperlipidemia, unspecified; F41.1 Generalized anxiety disorder; H54.8 Legal blindness, as defined in USA; I12.9 Hypertensive chronic kidney disease with stage 1 through stage 4 chronic kidney disease, or unspecified chronic kidney disease; K21.9 Gastro-esophageal reflux disease without esophagitis; K59.00 Constipation, unspecified; N18.9 Chronic kidney disease, unspecified; F17.200 Nicotine dependence, unspecified, uncomplicated; F32.9 Major depressive disorder, single episode, unspecified; G47.00 Insomnia, unspecified; G89.29 Other chronic pain; M19.90 Unspecified osteoarthritis, unspecified site; Z88.6 Allergy status to analgesic agent; Z88.5 Allergy status to narcotic agent; Z88.0 Allergy status to penicillin; Z88.8 Allergy status to other drugs, medicaments and biological substances; Z88.7 Allergy status to serum and vaccine; Z85.9 Personal history of malignant neoplasm, unspecified
CPT/HCPCS: 36415; 51702; 70450; 71010; 80048; 80053; 80164; 81001; 83605; 83735; 83880; 83930; 83935; 84484; 85025; 85027; 85610; 85730; 87040; 87086; 87186; 87205; 87641; 87804; 94640; 96361; 96374; J1335; J1630; J1953; J1956; J2930; J3370; J7040; J7042; J7050; J7613; J7620; 97530; 99285-25; J7030